=== PATIENT | male | born 1950 | race Two or more races ===

== ENCOUNTER 2017-01-14 13:42 | Inpatient (IN) | payer MEDICARE, MEDICAID ==
[~2017-01-14] VITALS: Ht 170.2 cm; Wt 58.7 kg
[~2017-01-14 13:42] MED LIST: ASPI81CH43 GT; DOCU100T15 PO; DULO20CA PO; FAMO-12 PO; GLIP-116 PO; HYDR-4663 PO; NITR0.4S29 SL; OMEP20CA74 OR; ONDA8TAB6 PO; PREG20SO OR; TRAM50TA2 PO
[2017-01-14 18:23] LABS: Basophils # (auto) 0 uL; Basophils % (auto) 0.3 % (0.0-2.0); CONDITION Y; Eosinophils # (auto) 0.2 uL; Eosinophils % (auto) 2.3 % (0.0-7.0); Hematocrit 34.2 % (41.0-53.0); Hemoglobin 11.1 g/dL (13.5-17.5); Lymphocytes % (auto) 10.8 % (10.0-50.0); Mean Corpuscular Hemoglobin 30.5 pg (28.0-32.0); Mean Corpuscular Hgb Conc. 32.6 g/dL (32.0-36.0); Mean Corpuscular Volume 93.7 fL (80.0-100.0); Mean Platelet Volume 8.8 fL (7.4-10.4); Monocytes # (auto) 0.4 uL; Monocytes % (auto) 4.4 % (0.0-12.0); Neutrophils # (auto) 7.2 uL; Neutrophils % (auto) 82.2 % (37.0-80.0); Platelet Count (auto) 285 10^3/uL (140-450); Red Cell Distribution Width 16.5 % (11.6-16.0); White Blood Cell 8.8 10^3/uL (4.4-10.8)
[2017-01-14 18:34] LABS: INR 0.99 (0.9-1.15); Prothrombin Time 10.8 sec (9.37-12.3)
[2017-01-14 19:06] LABS: B-Type Natriuretic Peptide 1861.76 pg/mL (0-100)
[2017-01-14 19:11] LABS: Temperature: 23.3 C (20.0-25.0)
[2017-01-14] MEDS ORDERED: CLINDAMYCIN 600MG IV 50 ML IV ONE (19:30)
[2017-01-14 20:11] LABS: Albumin 3.2 g/dL (3.4-5.0); BUN/Creatinine Ratio 6.7; Bilirubin, Total 0.4 mg/dL (0.2-1.0); Calcium 7.7 mg/dL (8.5-10.1); Potassium 4.6 mmol/L (3.5-5.1)
[2017-01-14] MEDS ORDERED: NITROGLYCERIN 0.4 MG SL TAB SL PRN (21:00)
[2017-01-14] MEDS ORDERED: LACTULOSE 20Gm/30ML SOLN PO PRN (21:00)
[2017-01-14] MEDS ORDERED: MORPHINE SULF INJ 2 MG/ML SYRINGE 1ML IV PRN (21:00)
[2017-01-14] MEDS ORDERED: cefTRIAXone 1GM/50ML D5W 50 ML IV ONE (21:00)
[2017-01-14] MEDS ORDERED: cloNIDine HCL 0.1 MG TAB PO PRN (21:00)
[2017-01-14] MEDS ORDERED: KETOROLAC TROMETH 30 MG/ML 1ML VIAL IV PRN (21:00)
[2017-01-14] MEDS ORDERED: DEXTROSE (50%) 50ML SYRG IV PRN (21:15)
[2017-01-14 22:00] VITALS: BP 125/71
[2017-01-14] MEDS: CLINDAMYCIN 600MG IV 50 ML IV SCH (23:31)
[2017-01-14] MEDS: SODIUM CHLOR 0.9% PF (SALINE LOCK) 10ML VIAL IV SCH (23:32)
[2017-01-15 05:16] VITALS: BP 112/56
[2017-01-15] MEDS: ACCU-CHEK COMFORT CURVE STRIP VI SCH ×4 (06:00→18:00)
[2017-01-15] MEDS: InsuLIN REG 1unit/0.01ml Soln (100units/ml) SC SCH ×4 (06:00→18:00)
[2017-01-15] MEDS: CLINDAMYCIN 600MG IV 50 ML IV SCH (06:54)
[2017-01-15] MEDS: SODIUM CHLOR 0.9% PF (SALINE LOCK) 10ML VIAL IV SCH ×3 (06:54→22:43)
[2017-01-15 08:15] LABS: Basophils # (auto) 0 uL; Basophils % (auto) 0.6 % (0.0-2.0); CONDITION Y; Eosinophils # (auto) 0.2 uL; Eosinophils % (auto) 3.1 % (0.0-7.0); Hematocrit 26.6 % (41.0-53.0); Hemoglobin 8.8 g/dL (13.5-17.5); Lymphocytes # (auto) 0.7 uL; Mean Corpuscular Hemoglobin 30.7 pg (28.0-32.0); Mean Corpuscular Hgb Conc. 33.1 g/dL (32.0-36.0); Mean Corpuscular Volume 92.9 fL (80.0-100.0); Mean Platelet Volume 8.7 fL (7.4-10.4); Monocytes # (auto) 0.5 uL; Neutrophils # (auto) 5.3 uL; Neutrophils % (auto) 78.3 % (37.0-80.0); Platelet Count (auto) 208 10^3/uL (140-450); Red Cell Distribution Width 16.4 % (11.6-16.0); White Blood Cell 6.8 10^3/uL (4.4-10.8)
[2017-01-15 08:20] VITALS: BP 98/61
[2017-01-15 08:31] LABS: Albumin 2.7 g/dL (3.4-5.0); BUN/Creatinine Ratio 6.7; Bilirubin, Total 0.4 mg/dL (0.2-1.0); Calcium 7.2 mg/dL (8.5-10.1); Potassium 4.6 mmol/L (3.5-5.1)
[2017-01-15] MEDS: cefTRIAXone 1GM/50ML D5W 50 ML IV SCH (09:02)
[2017-01-15] MEDS ORDERED: PREGABALIN 25 MG CAP PO SCH (10:00)
[2017-01-15] MEDS: PANTOPRAZOLE SODIUM 40 MG/10 ML VIAL IV SCH (10:36)
[2017-01-15] MEDS: DULoxetine HCL 30 MG CAP PO SCH (10:36)
[2017-01-15] MEDS: ENOXAPARIN SOD 30 MG/0.3 ML SYRINGE SC SCH (10:36)
[2017-01-15] MEDS: ASPirin 81 mg TAB PO SCH (10:37)
[2017-01-15] MEDS: ATENOLOL 25 MG TAB PO SCH (10:39)
[2017-01-15] MEDS ORDERED: VANCOMYCIN PER PHARMACY 0 MG IV SCH (10:45)
[2017-01-15] MEDS ORDERED: VANCOMYCIN 1,500 MG in D5W 5% 250 ML IV ONE (12:00)
[2017-01-15 12:04] VITALS: BP 101/66
[2017-01-15] MEDS: ONDANSETRON HCL 4 MG/2 ML VIAL IV PRN ×2 (13:51→20:29)
[2017-01-15 16:38] VITALS: BP 102/69
[2017-01-15 20:00] VITALS: BP 104/58
[2017-01-15 21:59] VITALS: BP 104/58
[2017-01-15] MEDS: HYDROcodone-ACET 10/325MG TAB PO PRN (22:40)
[2017-01-16] VITALS (7 sets, daily range): BP systolic 99–149; BP diastolic 49–89
[2017-01-16] MEDS: InsuLIN REG 1unit/0.01ml Soln (100units/ml) SC SCH ×5 (00:29→23:52)
[2017-01-16] MEDS: ACCU-CHEK COMFORT CURVE STRIP VI SCH ×5 (00:30→23:52)
[2017-01-16] MEDS: ONDANSETRON HCL 4 MG/2 ML VIAL IV PRN ×4 (02:17→16:17)
[2017-01-16] MEDS: SODIUM CHLOR 0.9% PF (SALINE LOCK) 10ML VIAL IV SCH ×3 (06:06→22:30)
[2017-01-16] MEDS: HYDROcodone-ACET 10/325MG TAB PO PRN (06:48)
[2017-01-16] MEDS: cefTRIAXone 1GM/50ML D5W 50 ML IV SCH (08:40)
[2017-01-16] MEDS: ATENOLOL 25 MG TAB PO SCH (10:00)
[2017-01-16] MEDS: ENOXAPARIN SOD 30 MG/0.3 ML SYRINGE SC SCH (10:00)
[2017-01-16 10:16] LABS: Basophils # (auto) 0 uL; Basophils % (auto) 0.3 % (0.0-2.0); CONDITION Y; Eosinophils # (auto) 0 uL; Eosinophils % (auto) 0.2 % (0.0-7.0); Hematocrit 33.9 % (41.0-53.0); Hemoglobin 11.1 g/dL (13.5-17.5); Lymphocytes # (auto) 0.6 uL; Lymphocytes % (auto) 8.1 % (10.0-50.0); Mean Corpuscular Hemoglobin 30.7 pg (28.0-32.0); Mean Corpuscular Hgb Conc. 32.9 g/dL (32.0-36.0); Mean Corpuscular Volume 93.4 fL (80.0-100.0); Mean Platelet Volume 9.3 fL (7.4-10.4); Monocytes # (auto) 0.4 uL; Monocytes % (auto) 5.9 % (0.0-12.0); Neutrophils # (auto) 6.1 uL; Neutrophils % (auto) 85.5 % (37.0-80.0); Platelet Count (auto) 266 10^3/uL (140-450); Red Cell Distribution Width 16.3 % (11.6-16.0); White Blood Cell 7.1 10^3/uL (4.4-10.8)
[2017-01-16 10:24] LABS: BUN/Creatinine Ratio 7.3; Magnesium 3.4 mg/dL (1.6-2.6); Phosphorus 4.4 mg/dL (2.5-4.90)
[2017-01-16 10:42] LABS: Potassium 5.9 mmol/L (3.5-5.1)
[2017-01-16] MEDS: PANTOPRAZOLE SODIUM 40 MG/10 ML VIAL IV SCH (11:17)
[2017-01-16] MEDS: DULoxetine HCL 30 MG CAP PO SCH (11:17)
[2017-01-16] MEDS: ASPirin 81 mg TAB PO SCH (11:18)
[2017-01-16] MEDS ORDERED: SODIUM CHL 0.9% 1000 ML BAG XX ONE (12:45)
[2017-01-16] MEDS ORDERED: MORPHINE SULF INJ 2 MG/ML SYRINGE 1ML IV PRN (13:15)
[2017-01-16] MEDS: PREGABALIN 25 MG CAP PO SCH (18:25)
[2017-01-17 05:00] VITALS: BP 94/50
[2017-01-17] MEDS: ACCU-CHEK COMFORT CURVE STRIP VI SCH ×3 (05:35→17:07)
[2017-01-17] MEDS: InsuLIN REG 1unit/0.01ml Soln (100units/ml) SC SCH ×3 (05:35→17:07)
[2017-01-17] MEDS: SODIUM CHLOR 0.9% PF (SALINE LOCK) 10ML VIAL IV SCH ×3 (05:35→22:24)
[2017-01-17] MEDS: cefTRIAXone 1GM/50ML D5W 50 ML IV SCH (07:56)
[2017-01-17] MEDS: ONDANSETRON HCL 4 MG/2 ML VIAL IV PRN ×2 (07:56→12:10)
[2017-01-17 08:00] VITALS: BP 109/58
[2017-01-17 08:31] LABS: Basophils # (auto) 0 uL; Basophils % (auto) 0.4 % (0.0-2.0); CONDITION Y; Eosinophils # (auto) 0.1 uL; Eosinophils % (auto) 2.1 % (0.0-7.0); Hematocrit 29.2 % (41.0-53.0); Lymphocytes # (auto) 0.5 uL; Lymphocytes % (auto) 9.3 % (10.0-50.0); Mean Corpuscular Hemoglobin 31.1 pg (28.0-32.0); Mean Corpuscular Hgb Conc. 34.3 g/dL (32.0-36.0); Mean Corpuscular Volume 90.7 fL (80.0-100.0); Mean Platelet Volume 8.8 fL (7.4-10.4); Monocytes # (auto) 0.4 uL; Monocytes % (auto) 7.4 % (0.0-12.0); Neutrophils # (auto) 4.5 uL; Neutrophils % (auto) 80.8 % (37.0-80.0); Platelet Count (auto) 218 10^3/uL (140-450); Red Cell Distribution Width 16.2 % (11.6-16.0); White Blood Cell 5.5 10^3/uL (4.4-10.8)
[2017-01-17 09:00] LABS: BUN/Creatinine Ratio 6.1; Calcium 6.8 mg/dL (8.5-10.1); Magnesium 2.9 mg/dL (1.6-2.6); Phosphorus 3.6 mg/dL (2.5-4.90); Potassium 4.2 mmol/L (3.5-5.1)
[2017-01-17] MEDS: ENOXAPARIN SOD 30 MG/0.3 ML SYRINGE SC SCH (10:18)
[2017-01-17] MEDS: PANTOPRAZOLE SODIUM 40 MG/10 ML VIAL IV SCH (10:18)
[2017-01-17] MEDS: ATENOLOL 25 MG TAB PO SCH (10:19)
[2017-01-17] MEDS: ASPirin 81 mg TAB PO SCH (10:19)
[2017-01-17] MEDS: HYDROcodone-ACET 10/325MG TAB PO PRN (10:19)
[2017-01-17] MEDS: DULoxetine HCL 30 MG CAP PO SCH (10:20)
[2017-01-17] MEDS: PREGABALIN 25 MG CAP PO SCH (10:20)
[2017-01-17 12:19] VITALS: BP 88/55
[2017-01-17] MEDS ORDERED: GASTROGRAFIN 120 ML SOL ONE (17:08)
[2017-01-17] MEDS: METOCLOPRAMIDE HCL 5MG/ml INJ 2ml VIAL IV SCH (17:17)
[2017-01-17 22:00] VITALS: BP 124/67
[2017-01-18] MEDS: InsuLIN REG 1unit/0.01ml Soln (100units/ml) SC SCH ×5 (00:21→23:42)
[2017-01-18] MEDS: ACCU-CHEK COMFORT CURVE STRIP VI SCH ×5 (00:21→23:42)
[2017-01-18 05:00] VITALS: BP 108/53
[2017-01-18] MEDS: METOCLOPRAMIDE HCL 5MG/ml INJ 2ml VIAL IV SCH ×3 (05:56→21:49)
[2017-01-18] MEDS: SODIUM CHLOR 0.9% PF (SALINE LOCK) 10ML VIAL IV SCH ×3 (05:56→21:49)
[2017-01-18] MEDS ORDERED: HEPARIN SODIUM (PORCINE) 5000 UNITS/ML 1ML VIAL XX ONE ×2 (07:15)
[2017-01-18 07:56] LABS: Basophils # (auto) 0 uL; Basophils % (auto) 0.5 % (0.0-2.0); CONDITION Y; Eosinophils # (auto) 0 uL; Eosinophils % (auto) 0.1 % (0.0-7.0); Hemoglobin 10.1 g/dL (13.5-17.5); Lymphocytes # (auto) 0.4 uL; Lymphocytes % (auto) 5.8 % (10.0-50.0); Mean Corpuscular Hemoglobin 30.6 pg (28.0-32.0); Mean Corpuscular Hgb Conc. 33.5 g/dL (32.0-36.0); Mean Corpuscular Volume 91.4 fL (80.0-100.0); Mean Platelet Volume 8.6 fL (7.4-10.4); Monocytes # (auto) 0.4 uL; Monocytes % (auto) 5.2 % (0.0-12.0); Neutrophils # (auto) 6.1 uL; Neutrophils % (auto) 88.4 % (37.0-80.0); Platelet Count (auto) 259 10^3/uL (140-450); SUSPECT SEE PRINTOUT; White Blood Cell 6.9 10^3/uL (4.4-10.8)
[2017-01-18 08:05] VITALS: BP 112/58
[2017-01-18 08:13] LABS: BUN/Creatinine Ratio 5.7; Calcium 7.1 mg/dL (8.5-10.1); Magnesium 2.8 mg/dL (1.6-2.6); Phosphorus 2.3 mg/dL (2.5-4.90); Potassium 3.8 mmol/L (3.5-5.1)
[2017-01-18] MEDS: DULoxetine HCL 30 MG CAP PO SCH (10:25)
[2017-01-18] MEDS: cefTRIAXone 1GM/50ML D5W 50 ML IV SCH (10:25)
[2017-01-18] MEDS: ASPirin 81 mg TAB PO SCH (10:26)
[2017-01-18] MEDS: PREGABALIN 25 MG CAP PO SCH (10:26)
[2017-01-18] MEDS: PANTOPRAZOLE SODIUM 40 MG/10 ML VIAL IV SCH (10:26)
[2017-01-18] MEDS: ATENOLOL 25 MG TAB PO SCH (10:28)
[2017-01-18] MEDS: ENOXAPARIN SOD 30 MG/0.3 ML SYRINGE SC SCH (10:31)
[2017-01-18] MEDS ORDERED: VANCOMYCIN 1GM/250ML D5W 250 ML IV ONE (12:00)
[2017-01-18] MEDS: ACETAMINOPHEN 325 MG TAB PO PRN (12:03)
[2017-01-18 12:43] VITALS: BP 122/60
[2017-01-18 16:21] VITALS: BP 105/51
[2017-01-18 22:00] VITALS: BP 100/47
[2017-01-19 05:00] VITALS: BP 102/52
[2017-01-19] MEDS: ACCU-CHEK COMFORT CURVE STRIP VI SCH ×4 (05:19→23:45)
[2017-01-19] MEDS: InsuLIN REG 1unit/0.01ml Soln (100units/ml) SC SCH ×4 (05:19→23:47)
[2017-01-19] MEDS: METOCLOPRAMIDE HCL 5MG/ml INJ 2ml VIAL IV SCH ×3 (05:19→21:51)
[2017-01-19] MEDS: SODIUM CHLOR 0.9% PF (SALINE LOCK) 10ML VIAL IV SCH ×3 (05:19→21:51)
[2017-01-19 06:29] LABS: Basophils # (auto) 0 uL; Basophils % (auto) 0.2 % (0.0-2.0); CONDITION Y; Eosinophils # (auto) 0 uL; Eosinophils % (auto) 0.2 % (0.0-7.0); Hematocrit 30.7 % (41.0-53.0); Hemoglobin 10.1 g/dL (13.5-17.5); Lymphocytes # (auto) 0.8 uL; Lymphocytes % (auto) 14.3 % (10.0-50.0); Mean Corpuscular Hemoglobin 30.6 pg (28.0-32.0); Mean Corpuscular Hgb Conc. 32.8 g/dL (32.0-36.0); Mean Corpuscular Volume 93.1 fL (80.0-100.0); Mean Platelet Volume 8.7 fL (7.4-10.4); Monocytes # (auto) 0.6 uL; Monocytes % (auto) 11.9 % (0.0-12.0); Neutrophils # (auto) 3.9 uL; Neutrophils % (auto) 73.4 % (37.0-80.0); Platelet Count (auto) 225 10^3/uL (140-450); Red Cell Distribution Width 16.4 % (11.6-16.0); White Blood Cell 5.3 10^3/uL (4.4-10.8)
[2017-01-19 06:57] LABS: BUN/Creatinine Ratio 5.6; Calcium 6.7 mg/dL (8.5-10.1); Magnesium 2.8 mg/dL (1.6-2.6); Phosphorus 3.2 mg/dL (2.5-4.90); Potassium 3.8 mmol/L (3.5-5.1)
[2017-01-19 09:00] VITALS: BP 96/53
[2017-01-19] MEDS: Novasource Renal 8 Ounces PO SCH ×3 (10:08→18:08)
[2017-01-19] MEDS: PRO-STAT 64 30ML PO SCH ×2 (10:09→18:09)
[2017-01-19] MEDS: cefTRIAXone 1GM/50ML D5W 50 ML IV SCH (10:46)
[2017-01-19] MEDS: PANTOPRAZOLE SODIUM 40 MG/10 ML VIAL IV SCH (10:46)
[2017-01-19] MEDS: PREGABALIN 25 MG CAP PO SCH (10:47)
[2017-01-19] MEDS: ASPirin 81 mg TAB PO SCH (10:47)
[2017-01-19] MEDS: DULoxetine HCL 30 MG CAP PO SCH (10:47)
[2017-01-19] MEDS: ATENOLOL 25 MG TAB PO SCH (10:48)
[2017-01-19] MEDS: ENOXAPARIN SOD 30 MG/0.3 ML SYRINGE SC SCH (10:50)
[2017-01-19 12:54] VITALS: BP 129/72
[2017-01-19 16:43] VITALS: BP 90/48
[2017-01-19 22:38] VITALS: BP 100/55
[2017-01-20] MEDS: METOCLOPRAMIDE HCL 5MG/ml INJ 2ml VIAL IV SCH ×3 (05:41→22:07)
[2017-01-20] MEDS: SODIUM CHLOR 0.9% PF (SALINE LOCK) 10ML VIAL IV SCH ×3 (05:42→22:07)
[2017-01-20] MEDS: InsuLIN REG 1unit/0.01ml Soln (100units/ml) SC SCH ×3 (05:42→18:00)
[2017-01-20] MEDS: ACCU-CHEK COMFORT CURVE STRIP VI SCH ×3 (05:42→18:00)
[2017-01-20 05:48] VITALS: BP 99/50
[2017-01-20 08:00] VITALS: BP 108/60
[2017-01-20] MEDS: PRO-STAT 64 30ML PO SCH ×2 (08:00→18:00)
[2017-01-20] MEDS: Novasource Renal 8 Ounces PO SCH ×3 (08:00→18:00)
[2017-01-20 09:23] VITALS: BP 86/51
[2017-01-20] MEDS: ATENOLOL 25 MG TAB PO SCH (10:00)
[2017-01-20] MEDS: DULoxetine HCL 30 MG CAP PO SCH (10:30)
[2017-01-20] MEDS: PREGABALIN 25 MG CAP PO SCH (10:30)
[2017-01-20] MEDS: ASPirin 81 mg TAB PO SCH (10:31)
[2017-01-20] MEDS: PANTOPRAZOLE SODIUM 40 MG/10 ML VIAL IV SCH (10:32)
[2017-01-20] MEDS: ENOXAPARIN SOD 30 MG/0.3 ML SYRINGE SC SCH (10:32)
[2017-01-20] MEDS: cefTRIAXone 1GM/50ML D5W 50 ML IV SCH (10:33)
[2017-01-20 12:29] VITALS: BP 92/49
[2017-01-20 16:36] VITALS: BP 102/51
[2017-01-20 22:00] VITALS: BP 103/51
[2017-01-21] VITALS (8 sets, daily range): BP systolic 99–115; BP diastolic 50–56
[2017-01-21] MEDS: ACCU-CHEK COMFORT CURVE STRIP VI SCH ×5 (00:21→23:51)
[2017-01-21] MEDS: InsuLIN REG 1unit/0.01ml Soln (100units/ml) SC SCH ×5 (00:22→23:52)
[2017-01-21] MEDS: SODIUM CHLOR 0.9% PF (SALINE LOCK) 10ML VIAL IV SCH ×3 (06:05→21:53)
[2017-01-21] MEDS: METOCLOPRAMIDE HCL 5MG/ml INJ 2ml VIAL IV SCH ×3 (06:05→21:53)
[2017-01-21 07:48] LABS: Albumin 2.6 g/dL (3.4-5.0); BUN/Creatinine Ratio 8.8; Calcium 6.4 mg/dL (8.5-10.1); Potassium 3.9 mmol/L (3.5-5.1)
[2017-01-21 07:52] LABS: Bilirubin, Total 0.3 mg/dL (0.2-1.0)
[2017-01-21] MEDS: cefTRIAXone 1GM/50ML D5W 50 ML IV SCH (08:51)
[2017-01-21] MEDS: ENOXAPARIN SOD 30 MG/0.3 ML SYRINGE SC SCH (08:52)
[2017-01-21] MEDS: PANTOPRAZOLE SODIUM 40 MG/10 ML VIAL IV SCH (08:52)
[2017-01-21] MEDS: ASPirin 81 mg TAB PO SCH (08:52)
[2017-01-21] MEDS: PRO-STAT 64 30ML PO SCH ×2 (09:00→17:46)
[2017-01-21] MEDS: Novasource Renal 8 Ounces PO SCH ×3 (09:00→17:47)
[2017-01-21] MEDS: ATENOLOL 25 MG TAB PO SCH (10:00)
[2017-01-21] MEDS: PREGABALIN 25 MG CAP PO SCH (11:02)
[2017-01-21] MEDS: DULoxetine HCL 30 MG CAP PO SCH (11:02)
[2017-01-21] MEDS ORDERED: VANCOMYCIN 1GM/250ML D5W 250 ML IV ONE (17:00)
[2017-01-22] VITALS (7 sets, daily range): BP systolic 106–124; BP diastolic 54–68
[2017-01-22] MEDS: METOCLOPRAMIDE HCL 5MG/ml INJ 2ml VIAL IV SCH ×3 (05:41→20:43)
[2017-01-22] MEDS: PRO-STAT 64 30ML PO SCH ×2 (05:42→16:45)
[2017-01-22] MEDS: ACCU-CHEK COMFORT CURVE STRIP VI SCH ×3 (05:42→17:44)
[2017-01-22] MEDS: Novasource Renal 8 Ounces PO SCH ×3 (05:42→16:45)
[2017-01-22] MEDS: InsuLIN REG 1unit/0.01ml Soln (100units/ml) SC SCH ×3 (05:42→17:44)
[2017-01-22] MEDS: SODIUM CHLOR 0.9% PF (SALINE LOCK) 10ML VIAL IV SCH ×3 (05:42→20:43)
[2017-01-22] MEDS ORDERED: EPOETIN ALFA 3,000 UNIT/1 ML VIAL IV ONE ×2 (07:15)
[2017-01-22] MEDS ORDERED: HEPARIN SODIUM (PORCINE) 5000 UNITS/ML 1ML VIAL IV ONE (07:15)
[2017-01-22] MEDS ORDERED: EPOETIN ALFA 2,000 UNIT/1 ML VIAL IV ONE (07:15)
[2017-01-22] MEDS: ACETAMINOPHEN 325 MG TAB PO PRN (08:59)
[2017-01-22] MEDS: cefTRIAXone 1GM/50ML D5W 50 ML IV SCH (09:11)
[2017-01-22] MEDS: PREGABALIN 25 MG CAP PO SCH (09:12)
[2017-01-22] MEDS: ASPirin 81 mg TAB PO SCH (09:12)
[2017-01-22] MEDS: PANTOPRAZOLE SODIUM 40 MG/10 ML VIAL IV SCH (09:12)
[2017-01-22] MEDS: DULoxetine HCL 30 MG CAP PO SCH (09:12)
[2017-01-22] MEDS: ATENOLOL 25 MG TAB PO SCH (09:13)
[2017-01-22] MEDS: ENOXAPARIN SOD 30 MG/0.3 ML SYRINGE SC SCH (09:13)
[2017-01-23] MEDS: ACCU-CHEK COMFORT CURVE STRIP VI SCH ×4 (00:01→17:22)
[2017-01-23 05:08] VITALS: BP 117/59
[2017-01-23] MEDS: InsuLIN REG 1unit/0.01ml Soln (100units/ml) SC SCH ×4 (06:00→17:22)
[2017-01-23] MEDS: METOCLOPRAMIDE HCL 5MG/ml INJ 2ml VIAL IV SCH ×3 (06:10→21:29)
[2017-01-23] MEDS: SODIUM CHLOR 0.9% PF (SALINE LOCK) 10ML VIAL IV SCH ×3 (06:10→21:29)
[2017-01-23 08:00] VITALS: BP 131/74
[2017-01-23] MEDS: PRO-STAT 64 30ML PO SCH ×2 (08:00→15:48)
[2017-01-23] MEDS: Novasource Renal 8 Ounces PO SCH ×3 (08:00→15:48)
[2017-01-23] MEDS ORDERED: ceFAZolin 1GM VL ONE (08:11)
[2017-01-23 09:00] VITALS: BP 131/74
[2017-01-23] MEDS: cefTRIAXone 1GM/50ML D5W 50 ML IV SCH (09:25)
[2017-01-23] MEDS: PANTOPRAZOLE SODIUM 40 MG/10 ML VIAL IV SCH (09:25)
[2017-01-23] MEDS: ASPirin 81 mg TAB PO SCH (09:26)
[2017-01-23] MEDS: PREGABALIN 25 MG CAP PO SCH (09:26)
[2017-01-23] MEDS: ENOXAPARIN SOD 30 MG/0.3 ML SYRINGE SC SCH (09:26)
[2017-01-23] MEDS: ATENOLOL 25 MG TAB PO SCH (09:26)
[2017-01-23] MEDS: DULoxetine HCL 30 MG CAP PO SCH ×2 (09:26→15:00)
[2017-01-23] MEDS ORDERED: PROPOFOL 10 MG/ML 20 ML IV ONE (11:49)
[2017-01-23] MEDS ORDERED: MIDAZOLAM HCL 1MG/1ML-2 ML VIAL ONE (11:49)
[2017-01-23] MEDS ORDERED: fentaNYL CITRATE 100 MCG/2 ML VL ONE (11:49)
[2017-01-23] MEDS ORDERED: ONDANSETRON HCL 4 MG/2 ML VIAL IV ONE (12:30)
[2017-01-23] MEDS ORDERED: hydrALAZINE HCL 20 MG/ML VL IV PRN (12:30)
[2017-01-23] MEDS ORDERED: ePHEDrine SULFATE 50 MG/ML AMP IV PRN (12:30)
[2017-01-23] MEDS ORDERED: fentaNYL CITRATE 100 MCG/2 ML VL IV ONE (13:00)
[2017-01-23] MEDS ORDERED: LORazepam 0.5 MG TAB PO ONE (15:15)
[2017-01-23 16:38] VITALS: BP 126/64
[2017-01-23] MEDS ORDERED: EPOETIN ALFA 10,000 UNIT/1 ML VIAL IV ONE (17:15)
[2017-01-23] MEDS ORDERED: SODIUM CHL 0.9% 1000 ML BAG XX ONE (17:15)
[2017-01-23 22:17] VITALS: BP 132/74
[2017-01-24] VITALS (7 sets, daily range): BP systolic 103–146; BP diastolic 51–70
[2017-01-24] MEDS: ACCU-CHEK COMFORT CURVE STRIP VI SCH ×4 (00:15→17:22)
[2017-01-24] MEDS: InsuLIN REG 1unit/0.01ml Soln (100units/ml) SC SCH ×4 (00:15→17:23)
[2017-01-24] MEDS: SODIUM CHLOR 0.9% PF (SALINE LOCK) 10ML VIAL IV SCH ×2 (06:10→14:48)
[2017-01-24] MEDS: METOCLOPRAMIDE HCL 5MG/ml INJ 2ml VIAL IV SCH ×2 (06:10→13:41)
[2017-01-24] MEDS ORDERED: SODIUM CHL 0.9% 1000 ML BAG XX ONE (09:15)
[2017-01-24] MEDS ORDERED: EPOETIN ALFA 10,000 UNIT/1 ML VIAL IV ONE (09:30)
[2017-01-24] MEDS: cefTRIAXone 1GM/50ML D5W 50 ML IV SCH (09:34)
[2017-01-24] MEDS: PRO-STAT 64 30ML PO SCH ×2 (09:34→18:12)
[2017-01-24] MEDS: Novasource Renal 8 Ounces PO SCH ×3 (09:35→18:11)
[2017-01-24] MEDS: ENOXAPARIN SOD 30 MG/0.3 ML SYRINGE SC SCH (10:00)
[2017-01-24] MEDS: DULoxetine HCL 30 MG CAP PO SCH (10:18)
[2017-01-24] MEDS: PANTOPRAZOLE SODIUM 40 MG/10 ML VIAL IV SCH (10:18)
[2017-01-24] MEDS: ATENOLOL 25 MG TAB PO SCH (10:19)
[2017-01-24] MEDS: ASPirin 81 mg TAB PO SCH (10:20)
[2017-01-24] MEDS: PREGABALIN 25 MG CAP PO SCH (13:41)
== END 2017-01-24 22:00 | disposition home or self-care (01) | DRG 463 ==
LOC: ER 13:42 → TELE 13:43 → TELE-WESTW 22:00 → WEST WING 01-15 16:27
PROVIDERS: ADMIT Family Medicine; ATTEND Internal Medicine Pulmonary Disease
PROC: 0HRNXK3 Replacement of Left Foot Skin with Nonautologous Tissue Substitute, Full Thickness, External Approach (ICD-10-PCS; 2017-01-23)
PROC: 0JBR0ZZ Excision of Left Foot Subcutaneous Tissue and Fascia, Open Approach (ICD-10-PCS; principal; 2017-01-23 11:44)
DX: T87.54 Necrosis of amputation stump, left lower extremity (principal); N18.6 End stage renal disease; I50.33 Acute on chronic diastolic (congestive) heart failure; E43 Unspecified severe protein-calorie malnutrition; I13.2 Hypertensive heart and chronic kidney disease with heart failure and with stage 5 chronic kidney disease, or end stage renal disease; L97.529 Non-pressure chronic ulcer of other part of left foot with unspecified severity; Z89.511 Acquired absence of right leg below knee; E78.5 Hyperlipidemia, unspecified; E11.22 Type 2 diabetes mellitus with diabetic chronic kidney disease; Z99.2 Dependence on renal dialysis; Z95.1 Presence of aortocoronary bypass graft; Z80.42 Family history of malignant neoplasm of prostate; E11.621 Type 2 diabetes mellitus with foot ulcer; E11.69 Type 2 diabetes mellitus with other specified complication; I50.9 Heart failure, unspecified; L97.519 Non-pressure chronic ulcer of other part of right foot with unspecified severity; Z89.429 Acquired absence of other toe(s), unspecified side; C61 Malignant neoplasm of prostate
CPT/HCPCS: 36415; 71010; 73620; 73718; 74250; 80048; 80053; 80061; 80202; 82962; 83036; 83735; 83880; 84100; 84132; 85025; 85610; 85730; 87040; 87070; 87075; 87205; 87493; 90935; 96365; 96366; 96367; C9113; J0690; J0696; J0885; J1642; J1815; J2250; J2405; J2704; J3490; J7060; Q4081

== ENCOUNTER 2017-04-11 14:59 | Inpatient (IN) | payer MEDICARE, MEDICAID ==
[~2017-04-11] VITALS: Ht 177.8 cm; Wt 59.0 kg
[2017-04-11 15:43] LABS: Basophils # (auto) 0 uL; Basophils % (auto) 0.7 % (0.0-2.0); Eosinophils # (auto) 0.2 uL; Eosinophils % (auto) 3.5 % (0.0-7.0); Hematocrit 38.2 % (41.0-53.0); Hemoglobin 12.2 g/dL (13.5-17.5); Lymphocytes # (auto) 0.9 uL; Lymphocytes % (auto) 14.2 % (10.0-50.0); Mean Corpuscular Hemoglobin 29.5 pg (28.0-32.0); Mean Corpuscular Hgb Conc. 32.1 g/dL (32.0-36.0); Mean Platelet Volume 8.5 fL (6.9-10.8); Monocytes # (auto) 0.4 uL; Monocytes % (auto) 6.7 % (0.0-12.0); Neutrophils % (auto) 74.9 % (37.0-80.0); Platelet Count (auto) 160 10^3/uL (140-450); Red Cell Distribution Width 18.3 % (11.8-14.3); White Blood Cell 6.7 10^3/uL (4.4-10.8)
[2017-04-11 15:55] LABS: Albumin 3.2 g/dL (3.4-5.0); BUN/Creatinine Ratio 6.4; Calcium 8.7 mg/dL (8.5-10.1); Potassium 3.9 mmol/L (3.5-5.1)
[2017-04-11 15:58] LABS: Bilirubin, Total 0.5 mg/dL (0.2-1.0)
[2017-04-11] MEDS ORDERED: VANCOMYCIN 1GM/250ML D5W 250 ML IV ONE (20:00)
[2017-04-11] MEDS ORDERED: DOCUSATE SOD 100 MG CAP PO PRN (22:45)
[2017-04-11] MEDS ORDERED: DEXTROSE (50%) 50ML SYRG IV PRN (22:45)
[2017-04-11] MEDS ORDERED: ACETAMINOPHEN 325 MG TAB PO PRN (22:45)
[2017-04-11 23:45] VITALS: BP 140/70
[2017-04-12] VITALS (7 sets, daily range): BP systolic 114–139; BP diastolic 59–70
[2017-04-12] MEDS: ACCU-CHEK COMFORT CURVE STRIP VI SCH ×4 (05:56→18:06)
[2017-04-12] MEDS: InsuLIN REG 1unit/0.01ml Soln (100units/ml) SC SCH ×4 (05:56→18:06)
[2017-04-12] MEDS: CLINDAMYCIN 600MG IV 50 ML IV SCH ×3 (06:21→21:56)
[2017-04-12 06:26] LABS: Basophils # (auto) 0.1 uL; Eosinophils # (auto) 0.3 uL; Eosinophils % (auto) 4.4 % (0.0-7.0); Hematocrit 35.7 % (41.0-53.0); Hemoglobin 11.8 g/dL (13.5-17.5); Lymphocytes # (auto) 0.6 uL; Lymphocytes % (auto) 10.1 % (10.0-50.0); Mean Corpuscular Hemoglobin 30.2 pg (28.0-32.0); Mean Corpuscular Hgb Conc. 33.2 g/dL (32.0-36.0); Mean Corpuscular Volume 90.9 fL (80.0-100.0); Mean Platelet Volume 8.9 fL (6.9-10.8); Monocytes # (auto) 0.5 uL; Monocytes % (auto) 8.1 % (0.0-12.0); Neutrophils # (auto) 4.7 uL; Neutrophils % (auto) 76.4 % (37.0-80.0); Nucleated Red Blood Cells % 0.1 %; Platelet Count (auto) 155 10^3/uL (140-450); Red Cell Distribution Width 18.3 % (11.8-14.3); White Blood Cell 6.2 10^3/uL (4.4-10.8)
[2017-04-12 06:39] LABS: Potassium 3.7 mmol/L (3.5-5.1)
[2017-04-12 06:46] LABS: Albumin 2.9 g/dL (3.4-5.0); BUN/Creatinine Ratio 6.4; Bilirubin, Total 0.6 mg/dL (0.2-1.0); Calcium 8.1 mg/dL (8.5-10.1); Total Protein 7.1 g/dL (6.4-8.2)
[2017-04-12] MEDS: SEVELAMER 800 MG TAB PO SCH ×3 (08:13→18:06)
[2017-04-12] MEDS: CALCIUM ACETATE 667 MG CAP PO SCH ×3 (08:14→18:06)
[2017-04-12] MEDS: ENOXAPARIN SOD 30 MG/0.3 ML SYRINGE SC SCH (10:35)
[2017-04-12] MEDS: PANTOPRAZOLE 40 MG TAB PO SCH (10:35)
[2017-04-12] MEDS: DULoxetine HCL 30 MG CAP PO SCH (10:35)
[2017-04-12] MEDS: ONDANSETRON HCL 4 MG/2 ML VIAL IV PRN (15:24)
[2017-04-12] MEDS: HYDROcodone-ACET 5/325MG TAB PO PRN (18:16)
[2017-04-12] MEDS: ATORVASTATIN 20 MG TAB PO SCH (21:56)
[2017-04-13 04:49] VITALS: BP 125/67
[2017-04-13] MEDS: InsuLIN REG 1unit/0.01ml Soln (100units/ml) SC SCH ×5 (06:00→23:42)
[2017-04-13] MEDS: CLINDAMYCIN 600MG IV 50 ML IV SCH ×3 (06:11→21:48)
[2017-04-13] MEDS: ACCU-CHEK COMFORT CURVE STRIP VI SCH ×5 (06:11→23:42)
[2017-04-13 07:45] VITALS: BP 117/66
[2017-04-13] MEDS: SEVELAMER 800 MG TAB PO SCH ×3 (08:28→18:09)
[2017-04-13] MEDS: CALCIUM ACETATE 667 MG CAP PO SCH ×3 (08:29→18:09)
[2017-04-13 08:45] LABS: BUN/Creatinine Ratio 6.5; Calcium 8.7 mg/dL (8.5-10.1); Magnesium 2.9 mg/dL (1.6-2.6); Potassium 4.3 mmol/L (3.5-5.1)
[2017-04-13] MEDS: PANTOPRAZOLE 40 MG TAB PO SCH (09:29)
[2017-04-13] MEDS: DULoxetine HCL 30 MG CAP PO SCH (09:29)
[2017-04-13] MEDS: ENOXAPARIN SOD 30 MG/0.3 ML SYRINGE SC SCH (09:29)
[2017-04-13] MEDS: CLOPIDOGREL BISULFATE 75 MG TAB PO SCH (10:52)
[2017-04-13] MEDS: ASPirin 81 mg TAB PO SCH (10:52)
[2017-04-13 10:59] VITALS: BP 110/55
[2017-04-13] MEDS: ONDANSETRON HCL 4 MG/2 ML VIAL IV PRN (15:09)
[2017-04-13] MEDS: HYDROcodone-ACET 5/325MG TAB PO PRN (15:09)
[2017-04-13 16:17] VITALS: BP 129/64
[2017-04-13] MEDS ORDERED: LORazepam 0.5 MG TAB PO PRN (16:45)
[2017-04-13 20:58] VITALS: BP 130/66
[2017-04-13] MEDS: ATORVASTATIN 20 MG TAB PO SCH (21:45)
[2017-04-14 05:06] VITALS: BP 120/65
[2017-04-14] MEDS: InsuLIN REG 1unit/0.01ml Soln (100units/ml) SC SCH ×3 (06:00→17:42)
[2017-04-14] MEDS: CLINDAMYCIN 600MG IV 50 ML IV SCH ×3 (06:25→22:19)
[2017-04-14] MEDS: ACCU-CHEK COMFORT CURVE STRIP VI SCH ×3 (06:25→17:41)
[2017-04-14 06:30] LABS: BUN/Creatinine Ratio 5.6; Calcium 8.6 mg/dL (8.5-10.1); Potassium 3.9 mmol/L (3.5-5.1)
[2017-04-14 07:52] VITALS: BP 135/65
[2017-04-14] MEDS: SEVELAMER 800 MG TAB PO SCH ×3 (08:34→17:41)
[2017-04-14] MEDS: CALCIUM ACETATE 667 MG CAP PO SCH ×3 (08:34→17:41)
[2017-04-14] MEDS: DULoxetine HCL 30 MG CAP PO SCH (09:45)
[2017-04-14] MEDS: PANTOPRAZOLE 40 MG TAB PO SCH (09:45)
[2017-04-14] MEDS: CLOPIDOGREL BISULFATE 75 MG TAB PO SCH (09:45)
[2017-04-14] MEDS: ENOXAPARIN SOD 30 MG/0.3 ML SYRINGE SC SCH (09:45)
[2017-04-14] MEDS: ASPirin 81 mg TAB PO SCH (09:45)
[2017-04-14 11:59] VITALS: BP 121/63
[2017-04-14 16:59] VITALS: BP 128/71
[2017-04-14] MEDS: ONDANSETRON HCL 4 MG/2 ML VIAL IV PRN (17:41)
[2017-04-14 21:44] VITALS: BP 114/66
[2017-04-14] MEDS: ATORVASTATIN 20 MG TAB PO SCH (22:20)
[2017-04-15] MEDS: ACCU-CHEK COMFORT CURVE STRIP VI SCH ×5 (00:02→23:38)
[2017-04-15 04:59] VITALS: BP 132/70
[2017-04-15] MEDS: InsuLIN REG 1unit/0.01ml Soln (100units/ml) SC SCH ×5 (05:51→23:38)
[2017-04-15] MEDS: CLINDAMYCIN 600MG IV 50 ML IV SCH ×3 (05:51→21:35)
[2017-04-15 08:00] VITALS: BP 126/68
[2017-04-15] MEDS: SEVELAMER 800 MG TAB PO SCH ×3 (08:00→18:10)
[2017-04-15] MEDS: CALCIUM ACETATE 667 MG CAP PO SCH ×3 (08:00→18:10)
[2017-04-15 08:30] VITALS: BP 126/68
[2017-04-15 09:08] LABS: INR 1.07 (0.9-1.15); Partial Thromboplastin Time 33.8 sec (22.64-33.71); Prothrombin Time 11.7 sec (9.37-12.3)
[2017-04-15] MEDS ORDERED: LIDOCAINE 2%HCL (LOCAL ANESTH.) INJ 20ML MDV ONE (09:08)
[2017-04-15] MEDS ORDERED: IODIXANOL 320MG/ML 100ML BTL IV ONE ×2 (09:11→10:19)
[2017-04-15] MEDS ORDERED: MIDAZOLAM HCL 1MG/1ML-2 ML VIAL ONE (09:59)
[2017-04-15] MEDS ORDERED: fentaNYL CITRATE 100 MCG/2 ML VL ONE (09:59)
[2017-04-15] MEDS ORDERED: SODIUM CHL 0.9% 50 ML ONE (09:59)
[2017-04-15] MEDS ORDERED: ANGIOMAX 250 MG VIAL IV ONE (09:59)
[2017-04-15] MEDS: ASPirin 81 mg TAB PO SCH (10:00)
[2017-04-15] MEDS: ENOXAPARIN SOD 30 MG/0.3 ML SYRINGE SC SCH (10:00)
[2017-04-15] MEDS: CLOPIDOGREL BISULFATE 75 MG TAB PO SCH (10:00)
[2017-04-15] MEDS ORDERED: NITROGLYCERIN 5MG/ML 10ML VIAL IV ONE (10:22)
[2017-04-15] MEDS ORDERED: VERAPAMIL 2.5MG/ML INJ 2ML VIAL IV ONE (10:22)
[2017-04-15] MEDS ORDERED: CLOPIDOGREL 300 MG TAB ONE (11:05)
[2017-04-15] MEDS ORDERED: CLOPIDOGREL 300 MG TAB PO ONE (11:15)
[2017-04-15] MEDS: DULoxetine HCL 30 MG CAP PO SCH (13:53)
[2017-04-15] MEDS: PANTOPRAZOLE 40 MG TAB PO SCH (13:53)
[2017-04-15] MEDS: HYDROcodone-ACET 5/325MG TAB PO PRN (13:56)
[2017-04-15 17:00] VITALS: BP 131/61
[2017-04-15] MEDS: ONDANSETRON HCL 4 MG/2 ML VIAL IV PRN (21:45)
[2017-04-15 21:55] VITALS: BP 136/76
[2017-04-15] MEDS: ATORVASTATIN 20 MG TAB PO SCH (22:01)
[2017-04-16] MEDS: ONDANSETRON HCL 4 MG/2 ML VIAL IV PRN ×2 (04:41→08:37)
[2017-04-16] MEDS: CLINDAMYCIN 600MG IV 50 ML IV SCH ×3 (05:00→22:19)
[2017-04-16 05:02] VITALS: BP 144/79
[2017-04-16] MEDS: ACCU-CHEK COMFORT CURVE STRIP VI SCH ×4 (05:06→22:20)
[2017-04-16] MEDS: InsuLIN REG 1unit/0.01ml Soln (100units/ml) SC SCH ×4 (05:06→22:20)
[2017-04-16 06:34] LABS: Calcium 8.4 mg/dL (8.5-10.1)
[2017-04-16 06:55] LABS: Potassium 5.7 mmol/L (3.5-5.1)
[2017-04-16 08:00] VITALS: BP 142/76
[2017-04-16] MEDS: SEVELAMER 800 MG TAB PO SCH ×3 (08:00→18:29)
[2017-04-16] MEDS: CALCIUM ACETATE 667 MG CAP PO SCH ×3 (08:00→18:29)
[2017-04-16 08:26] LABS: Basophils # (auto) 0.1 uL; Basophils % (auto) 0.9 % (0.0-2.0); Eosinophils # (auto) 0.1 uL; Eosinophils % (auto) 0.8 % (0.0-7.0); Hematocrit 39.7 % (41.0-53.0); Hemoglobin 13.1 g/dL (13.5-17.5); Lymphocytes # (auto) 0.8 uL; Lymphocytes % (auto) 9.7 % (10.0-50.0); Mean Corpuscular Hemoglobin 30.2 pg (28.0-32.0); Mean Corpuscular Hgb Conc. 32.9 g/dL (32.0-36.0); Mean Corpuscular Volume 91.7 fL (80.0-100.0); Mean Platelet Volume 9.1 fL (6.9-10.8); Monocytes # (auto) 0.6 uL; Monocytes % (auto) 7.2 % (0.0-12.0); Neutrophils # (auto) 6.8 uL; Neutrophils % (auto) 81.4 % (37.0-80.0); Nucleated Red Blood Cells % 0.2 %; Platelet Count (auto) 149 10^3/uL (140-450); Red Cell Distribution Width 18.3 % (11.8-14.3); White Blood Cell 8.3 10^3/uL (4.4-10.8)
[2017-04-16 10:22] LABS: Anisocytosis Slight; Platelet Estimate Adequate
[2017-04-16] MEDS ORDERED: DEXTROSE (50%) 50ML SYRG IV PRN (10:45)
[2017-04-16] MEDS ORDERED: SODIUM CHL 0.9% 1000 ML BAG XX ONE (12:00)
[2017-04-16] MEDS: DULoxetine HCL 30 MG CAP PO SCH (13:26)
[2017-04-16] MEDS: PANTOPRAZOLE 40 MG TAB PO SCH (13:26)
[2017-04-16] MEDS: ASPirin 81 mg TAB PO SCH (13:26)
[2017-04-16] MEDS: ENOXAPARIN SOD 30 MG/0.3 ML SYRINGE SC SCH (13:26)
[2017-04-16] MEDS: CLOPIDOGREL BISULFATE 75 MG TAB PO SCH (13:27)
[2017-04-16 16:00] VITALS: BP 137/70
[2017-04-16] MEDS: Novasource Renal 8 Ounces PO SCH (18:29)
[2017-04-16 20:00] VITALS: BP 136/69
[2017-04-16 22:00] VITALS: BP 136/69
[2017-04-16] MEDS: ATORVASTATIN 20 MG TAB PO SCH (22:19)
[2017-04-17] MEDS: CLINDAMYCIN 600MG IV 50 ML IV SCH ×3 (06:02→22:05)
[2017-04-17] MEDS: InsuLIN REG 1unit/0.01ml Soln (100units/ml) SC SCH ×4 (06:46→22:00)
[2017-04-17] MEDS: ACCU-CHEK COMFORT CURVE STRIP VI SCH ×4 (06:46→22:04)
[2017-04-17 08:30] VITALS: BP 122/63
[2017-04-17] MEDS: Novasource Renal 8 Ounces PO SCH ×2 (08:39→18:27)
[2017-04-17] MEDS: SEVELAMER 800 MG TAB PO SCH ×3 (08:48→18:27)
[2017-04-17] MEDS: CALCIUM ACETATE 667 MG CAP PO SCH ×3 (08:48→18:27)
[2017-04-17] MEDS: ENOXAPARIN SOD 30 MG/0.3 ML SYRINGE SC SCH (10:00)
[2017-04-17] MEDS: CLOPIDOGREL BISULFATE 75 MG TAB PO SCH (10:00)
[2017-04-17] MEDS: DULoxetine HCL 30 MG CAP PO SCH (10:26)
[2017-04-17] MEDS: PANTOPRAZOLE 40 MG TAB PO SCH (10:26)
[2017-04-17] MEDS: ASPirin 81 mg TAB PO SCH (10:26)
[2017-04-17 12:30] VITALS: BP 127/65
[2017-04-17 16:08] VITALS: BP 132/68
[2017-04-17 20:00] VITALS: BP 138/72
[2017-04-17 22:00] VITALS: BP 138/72
[2017-04-17] MEDS: ATORVASTATIN 20 MG TAB PO SCH (22:04)
[2017-04-18] VITALS (8 sets, daily range): BP systolic 124–145; BP diastolic 60–77
[2017-04-18] MEDS: CLINDAMYCIN 600MG IV 50 ML IV SCH (05:52)
[2017-04-18] MEDS: ACCU-CHEK COMFORT CURVE STRIP VI SCH ×4 (06:49→22:21)
[2017-04-18] MEDS: InsuLIN REG 1unit/0.01ml Soln (100units/ml) SC SCH ×4 (06:49→22:22)
[2017-04-18 08:00] LABS: BUN/Creatinine Ratio 6.1; Calcium 8.9 mg/dL (8.5-10.1); Potassium 4.5 mmol/L (3.5-5.1)
[2017-04-18] MEDS: Novasource Renal 8 Ounces PO SCH ×2 (08:00→18:05)
[2017-04-18] MEDS: CALCIUM ACETATE 667 MG CAP PO SCH ×3 (08:52→18:06)
[2017-04-18] MEDS: SEVELAMER 800 MG TAB PO SCH ×3 (08:52→18:04)
[2017-04-18] MEDS: CLOPIDOGREL BISULFATE 75 MG TAB PO SCH (09:11)
[2017-04-18] MEDS: PANTOPRAZOLE 40 MG TAB PO SCH (09:11)
[2017-04-18] MEDS: ASPirin 81 mg TAB PO SCH (09:11)
[2017-04-18] MEDS: ENOXAPARIN SOD 30 MG/0.3 ML SYRINGE SC SCH (09:11)
[2017-04-18] MEDS: DULoxetine HCL 30 MG CAP PO SCH (09:11)
[2017-04-18] MEDS ORDERED: cefTRIAXone 1GM/50ML D5W 50 ML IV ONE (11:15)
[2017-04-18] MEDS: ATORVASTATIN 20 MG TAB PO SCH (22:21)
[2017-04-19] VITALS (7 sets, daily range): BP systolic 123–136; BP diastolic 65–77
[2017-04-19 06:37] LABS: INR 1.05 (0.9-1.15); Prothrombin Time 11.4 sec (9.37-12.3)
[2017-04-19] MEDS: InsuLIN REG 1unit/0.01ml Soln (100units/ml) SC SCH ×4 (06:57→21:40)
[2017-04-19] MEDS: ACCU-CHEK COMFORT CURVE STRIP VI SCH ×4 (06:57→21:40)
[2017-04-19] MEDS: Novasource Renal 8 Ounces PO SCH ×2 (08:00→18:00)
[2017-04-19] MEDS: CALCIUM ACETATE 667 MG CAP PO SCH ×3 (08:00→18:05)
[2017-04-19] MEDS: SEVELAMER 800 MG TAB PO SCH ×3 (08:00→18:05)
[2017-04-19] MEDS: ASPirin 81 mg TAB PO SCH (09:46)
[2017-04-19] MEDS: DULoxetine HCL 30 MG CAP PO SCH (09:46)
[2017-04-19] MEDS: cefTRIAXone 1GM/50ML D5W 50 ML IV SCH (09:46)
[2017-04-19] MEDS: PANTOPRAZOLE 40 MG TAB PO SCH (09:47)
[2017-04-19] MEDS: CLOPIDOGREL BISULFATE 75 MG TAB PO SCH (09:47)
[2017-04-19] MEDS: ENOXAPARIN SOD 30 MG/0.3 ML SYRINGE SC SCH (09:47)
[2017-04-19] MEDS: FLORASTOR (S. BOULARDII) 250 MG CAP PO SCH (09:47)
[2017-04-19] MEDS ORDERED: ceFAZolin 1GM VL ONE ×2 (12:44→13:42)
[2017-04-19] MEDS ORDERED: BUPIVACAINE 0.75% INJ 10ML MPV SDV IJ ONE (12:44)
[2017-04-19] MEDS ORDERED: ceFAZolin 1GM/50ML D5W 50 ML IV ONE (13:14)
[2017-04-19] MEDS ORDERED: MIDAZOLAM HCL 1MG/1ML-2 ML VIAL ONE (13:16)
[2017-04-19] MEDS ORDERED: fentaNYL CITRATE 100 MCG/2 ML VL ONE (13:16)
[2017-04-19] MEDS ORDERED: DEXAMETHASONE SOD PHOS 10MG/1ML VIAL INJ ONE (13:16)
[2017-04-19] MEDS ORDERED: PROPOFOL 10 MG/ML 20 ML IV ONE (13:22)
[2017-04-19] MEDS ORDERED: BUPIVACAINE 0.75% INJ 30ML MPF VIAL IJ ONE (13:34)
[2017-04-19] MEDS ORDERED: NEOMYCIN-BACITRACIN-POLYM 15GM TOP OINT TOP ONE ×3 (13:42→14:30)
[2017-04-19] MEDS: HYDROcodone-ACET 5/325MG TAB PO PRN (18:41)
[2017-04-19 18:50] LABS: INR 1.05 (0.9-1.15); Prothrombin Time 11.4 sec (9.37-12.3)
[2017-04-19] MEDS: ATORVASTATIN 20 MG TAB PO SCH (21:40)
[2017-04-20 05:30] LABS: Basophils # (auto) 0.1 uL; Basophils % (auto) 1.1 % (0.0-2.0); Eosinophils # (auto) 0.2 uL; Eosinophils % (auto) 2.7 % (0.0-7.0); Hematocrit 32.9 % (41.0-53.0); Hemoglobin 10.8 g/dL (13.5-17.5); Lymphocytes # (auto) 0.6 uL; Lymphocytes % (auto) 7.5 % (10.0-50.0); Mean Corpuscular Hgb Conc. 32.8 g/dL (32.0-36.0); Mean Corpuscular Volume 91.7 fL (80.0-100.0); Monocytes # (auto) 0.5 uL; Neutrophils # (auto) 6.2 uL; Neutrophils % (auto) 81.7 % (37.0-80.0); Nucleated Red Blood Cells % 0.1 %; Platelet Count (auto) 136 10^3/uL (140-450); Red Cell Distribution Width 17.2 % (11.8-14.3); White Blood Cell 7.6 10^3/uL (4.4-10.8)
[2017-04-20 05:51] LABS: Calcium 9.3 mg/dL (8.5-10.1); Potassium 4.2 mmol/L (3.5-5.1)
[2017-04-20 05:53] LABS: BUN/Creatinine Ratio 6.8
[2017-04-20] MEDS: ACCU-CHEK COMFORT CURVE STRIP VI SCH ×4 (06:55→21:48)
[2017-04-20] MEDS: InsuLIN REG 1unit/0.01ml Soln (100units/ml) SC SCH ×4 (06:55→21:48)
[2017-04-20 08:00] VITALS: BP 126/66
[2017-04-20] MEDS: Novasource Renal 8 Ounces PO SCH ×2 (08:00→17:53)
[2017-04-20] MEDS: SEVELAMER 800 MG TAB PO SCH ×3 (08:36→17:53)
[2017-04-20] MEDS: CALCIUM ACETATE 667 MG CAP PO SCH ×3 (08:37→17:53)
[2017-04-20 08:40] VITALS: BP 126/66
[2017-04-20] MEDS ORDERED: EPOETIN ALFA 4,000 UNIT/ML VL IV ONE (09:00)
[2017-04-20] MEDS: ASPirin 81 mg TAB PO SCH (12:44)
[2017-04-20] MEDS: DULoxetine HCL 30 MG CAP PO SCH (12:44)
[2017-04-20] MEDS: FLORASTOR (S. BOULARDII) 250 MG CAP PO SCH (12:44)
[2017-04-20] MEDS: CLOPIDOGREL BISULFATE 75 MG TAB PO SCH (12:44)
[2017-04-20] MEDS: PANTOPRAZOLE 40 MG TAB PO SCH (12:44)
[2017-04-20] MEDS: ENOXAPARIN SOD 30 MG/0.3 ML SYRINGE SC SCH (12:45)
[2017-04-20] MEDS: cefTRIAXone 1GM/50ML D5W 50 ML IV SCH (12:49)
[2017-04-20 13:00] VITALS: BP 106/67
[2017-04-20 17:00] VITALS: BP 138/68
[2017-04-20] MEDS: HYDROcodone-ACET 5/325MG TAB PO PRN (20:08)
[2017-04-20 21:47] VITALS: BP 105/60
[2017-04-20] MEDS: ATORVASTATIN 20 MG TAB PO SCH (21:50)
[2017-04-21 05:31] LABS: Basophils # (auto) 0.1 uL; Basophils % (auto) 0.8 % (0.0-2.0); Eosinophils # (auto) 0.1 uL; Eosinophils % (auto) 1.9 % (0.0-7.0); Hemoglobin 10.8 g/dL (13.5-17.5); Lymphocytes % (auto) 13.9 % (10.0-50.0); Mean Corpuscular Hemoglobin 29.9 pg (28.0-32.0); Mean Corpuscular Hgb Conc. 32.7 g/dL (32.0-36.0); Mean Corpuscular Volume 91.5 fL (80.0-100.0); Mean Platelet Volume 9.1 fL (6.9-10.8); Monocytes # (auto) 0.7 uL; Monocytes % (auto) 9.7 % (0.0-12.0); Neutrophils # (auto) 5.3 uL; Neutrophils % (auto) 73.7 % (37.0-80.0); Platelet Count (auto) 140 10^3/uL (140-450); Red Cell Distribution Width 17.5 % (11.8-14.3); White Blood Cell 7.2 10^3/uL (4.4-10.8)
[2017-04-21 05:41] LABS: INR 1.05 (0.9-1.15); Prothrombin Time 11.4 sec (9.37-12.3)
[2017-04-21 05:43] VITALS: BP 140/43
[2017-04-21 05:55] LABS: BUN/Creatinine Ratio 5.4; Calcium 8.9 mg/dL (8.5-10.1); Magnesium 2.8 mg/dL (1.6-2.6); Potassium 3.7 mmol/L (3.5-5.1)
[2017-04-21] MEDS: InsuLIN REG 1unit/0.01ml Soln (100units/ml) SC SCH ×4 (06:17→21:52)
[2017-04-21] MEDS: ACCU-CHEK COMFORT CURVE STRIP VI SCH ×4 (06:17→21:52)
[2017-04-21 08:00] VITALS: BP 136/68
[2017-04-21] MEDS: SEVELAMER 800 MG TAB PO SCH ×3 (08:06→17:44)
[2017-04-21] MEDS: CALCIUM ACETATE 667 MG CAP PO SCH ×3 (08:07→17:45)
[2017-04-21] MEDS: Novasource Renal 8 Ounces PO SCH ×2 (08:14→18:00)
[2017-04-21 09:00] VITALS: BP_SYST 131; BP_SYST 134; BP_DIAS 68; BP_DIAS 74
[2017-04-21] MEDS: cefTRIAXone 1GM/50ML D5W 50 ML IV SCH (09:36)
[2017-04-21] MEDS: DULoxetine HCL 30 MG CAP PO SCH (09:36)
[2017-04-21] MEDS: FLORASTOR (S. BOULARDII) 250 MG CAP PO SCH (09:36)
[2017-04-21] MEDS: ASPirin 81 mg TAB PO SCH (09:36)
[2017-04-21] MEDS: CLOPIDOGREL BISULFATE 75 MG TAB PO SCH (09:36)
[2017-04-21] MEDS: PANTOPRAZOLE 40 MG TAB PO SCH (09:36)
[2017-04-21] MEDS: ENOXAPARIN SOD 30 MG/0.3 ML SYRINGE SC SCH (09:37)
[2017-04-21] MEDS ORDERED: VANCOMYCIN PER PHARMACY 0 MG IV SCH (12:30)
[2017-04-21] MEDS: MEROPENEM 500MG IVPB 100 ML IV SCH ×2 (12:45→21:51)
[2017-04-21 13:00] VITALS: BP 136/78
[2017-04-21] MEDS ORDERED: VANCOMYCIN 1GM/250ML D5W 250 ML IV ONE (14:00)
[2017-04-21] MEDS ORDERED: MEROPENEM 1GM IVPB 100 ML IV SCH (14:00)
[2017-04-21] MEDS: HYDROcodone-ACET 5/325MG TAB PO PRN (20:27)
[2017-04-21] MEDS: ATORVASTATIN 20 MG TAB PO SCH (21:51)
[2017-04-21 21:53] VITALS: BP 119/62
[2017-04-22 05:20] VITALS: BP 121/74
[2017-04-22 05:30] LABS: Basophils # (auto) 0.1 uL; Basophils % (auto) 0.9 % (0.0-2.0); Eosinophils # (auto) 0.3 uL; Eosinophils % (auto) 3.3 % (0.0-7.0); Hematocrit 32.5 % (41.0-53.0); Hemoglobin 10.6 g/dL (13.5-17.5); Lymphocytes # (auto) 0.9 uL; Lymphocytes % (auto) 10.3 % (10.0-50.0); Mean Corpuscular Hemoglobin 29.8 pg (28.0-32.0); Mean Corpuscular Hgb Conc. 32.7 g/dL (32.0-36.0); Mean Corpuscular Volume 91.3 fL (80.0-100.0); Mean Platelet Volume 9.1 fL (6.9-10.8); Monocytes # (auto) 0.7 uL; Monocytes % (auto) 7.9 % (0.0-12.0); Neutrophils # (auto) 6.5 uL; Neutrophils % (auto) 77.6 % (37.0-80.0); Nucleated Red Blood Cells % 0.1 %; Platelet Count (auto) 150 10^3/uL (140-450); White Blood Cell 8.4 10^3/uL (4.4-10.8)
[2017-04-22 05:45] LABS: INR 1.03 (0.9-1.15); Prothrombin Time 11.2 sec (9.37-12.3)
[2017-04-22 05:49] LABS: Albumin 2.8 g/dL (3.4-5.0); Anion Gap 10 (5-15); Aspartate Aminotransferase 12 U/L (15-37); BUN/Creatinine Ratio 6.2; Blood Urea Nitrogen 38 mg/dL (7-18); Calcium 9.2 mg/dL (8.5-10.1); Carbon Dioxide 31 mmol/L (21-32); Chloride 94 mmol/L (98-107); GFR African American 12 mL/min; GFR Non-African American 10 mL/min; Glucose 158 mg/dL (74-106); Magnesium 3.1 mg/dL (1.6-2.6); Sodium 135 mmol/L (136-145)
[2017-04-22 05:52] LABS: Alkaline Phosphatase 192 U/L (45-117); Bilirubin, Total 0.3 mg/dL (0.2-1.0); Total Protein 7.2 g/dL (6.4-8.2)
[2017-04-22] MEDS: ACCU-CHEK COMFORT CURVE STRIP VI SCH ×3 (06:12→17:00)
[2017-04-22] MEDS: InsuLIN REG 1unit/0.01ml Soln (100units/ml) SC SCH ×3 (06:13→17:00)
[2017-04-22 08:00] VITALS: BP 116/63
[2017-04-22] MEDS: SEVELAMER 800 MG TAB PO SCH ×3 (08:12→18:00)
[2017-04-22] MEDS: CALCIUM ACETATE 667 MG CAP PO SCH ×3 (08:12→18:00)
[2017-04-22] MEDS: Novasource Renal 8 Ounces PO SCH ×2 (08:13→18:00)
[2017-04-22] MEDS: DULoxetine HCL 30 MG CAP PO SCH (09:34)
[2017-04-22] MEDS: PANTOPRAZOLE 40 MG TAB PO SCH (09:34)
[2017-04-22] MEDS: FLORASTOR (S. BOULARDII) 250 MG CAP PO SCH (09:34)
[2017-04-22] MEDS: ASPirin 81 mg TAB PO SCH (09:34)
[2017-04-22] MEDS: CLOPIDOGREL BISULFATE 75 MG TAB PO SCH (09:34)
[2017-04-22] MEDS: MEROPENEM 500MG IVPB 100 ML IV SCH (09:34)
[2017-04-22] MEDS: ENOXAPARIN SOD 30 MG/0.3 ML SYRINGE SC SCH (09:35)
[2017-04-22] MEDS ORDERED: SACC250C PO (11:10)
[2017-04-22] MEDS ORDERED: LEVO250T45 PO (11:10)
[2017-04-22] MEDS ORDERED: ASPI81CH43 PO (11:10)
[2017-04-22] MEDS ORDERED: LEVOFLOXACIN 250 MG TAB PO SCH (11:15)
[2017-04-22] MEDS ORDERED: LEVOFLOXACIN 500 MG TAB PO ONE (11:15)
[2017-04-22 12:00] VITALS: BP 121/59
[2017-04-22 15:51] VITALS: BP 116/63
[2017-04-22 16:42] VITALS: BP 118/64
[2017-04-23] MEDS ORDERED: LEVOFLOXACIN 250 MG TAB PO SCH ×2 (10:00)
== END 2017-04-22 18:25 | disposition home health service (06) | DRG 270 ==
LOC: ER 14:59 → OVERFLOW 15:00 → CENTRAL 23:35
PROVIDERS: ADMIT Nurse Practitioner; ATTEND Internal Medicine
PROC: 04CL3ZZ Extirpation of Matter from Left Femoral Artery, Percutaneous Approach (ICD-10-PCS; 2017-04-15)
PROC: 047L3DZ Dilation of Left Femoral Artery with Intraluminal Device, Percutaneous Approach (ICD-10-PCS; 2017-04-15)
PROC: 047N3DZ Dilation of Left Popliteal Artery with Intraluminal Device, Percutaneous Approach (ICD-10-PCS; 2017-04-15)
PROC: 04CN3ZZ Extirpation of Matter from Left Popliteal Artery, Percutaneous Approach (ICD-10-PCS; 2017-04-15)
PROC: 0JBR0ZZ Excision of Left Foot Subcutaneous Tissue and Fascia, Open Approach (ICD-10-PCS; 2017-04-19)
PROC: 0Y6N0Z9 Detachment at Left Foot, Partial 1st Ray, Open Approach (ICD-10-PCS; 2017-04-19)
PROC: 0Y6N0ZB Detachment at Left Foot, Partial 2nd Ray, Open Approach (ICD-10-PCS; 2017-04-19)
PROC: 0Y6N0ZC Detachment at Left Foot, Partial 3rd Ray, Open Approach (ICD-10-PCS; 2017-04-19)
PROC: 0Y6N0ZD Detachment at Left Foot, Partial 4th Ray, Open Approach (ICD-10-PCS; 2017-04-19)
PROC: 0Y6N0ZF Detachment at Left Foot, Partial 5th Ray, Open Approach (ICD-10-PCS; 2017-04-19)
PROC: 0Y6N0Z9 Detachment at Left Foot, Partial 1st Ray, Open Approach (ICD-10-PCS; principal; 2017-04-19 13:19)
DX: E11.51 Type 2 diabetes mellitus with diabetic peripheral angiopathy without gangrene (principal); N18.6 End stage renal disease; I13.2 Hypertensive heart and chronic kidney disease with heart failure and with stage 5 chronic kidney disease, or end stage renal disease; E44.0 Moderate protein-calorie malnutrition; L03.116 Cellulitis of left lower limb; E11.22 Type 2 diabetes mellitus with diabetic chronic kidney disease; E11.621 Type 2 diabetes mellitus with foot ulcer; M86.9 Osteomyelitis, unspecified; E11.69 Type 2 diabetes mellitus with other specified complication; I50.9 Heart failure, unspecified; Z99.2 Dependence on renal dialysis; Z95.1 Presence of aortocoronary bypass graft; Z89.519 Acquired absence of unspecified leg below knee; Z80.42 Family history of malignant neoplasm of prostate; D63.8 Anemia in other chronic diseases classified elsewhere
CPT/HCPCS: 36415; 71010; 73620; 78315; 80048; 80053; 80061; 80202; 82962; 83036; 83605; 83735; 84132; 85025; 85610; 85730; 87040; 87070; 87075; 87077; 87186; 87205; 90935; 94761; 96365; 99152; 99153; J0690; J0696; J1100; J1642; J1815; J2185; J2250; J2405; J2704; J3490; Q9967